=== PATIENT | male | born 1950 | race Caucasian/White ===

== ENCOUNTER → 2018-08-18 | Outpatient (CLI) | payer OTHER ==
[~2018-08-18] MED LIST: ASCO1TAB PO; ASPI-1441 PO; ASPI81TA94 PO; ATOR40TA24 PO; CAR3.125 PO; CAR6.25 PO; CEP500 PO; CHOL500045 PO; CLO75 PO; CYC10 PO; FOLI-51 PO; IBUP-1618 PO; INUL2.5T PO; LISI5TAB25 PO; LOR5/325 PO; MAG CITRATE; MELA3TAB31 PO; MILK200C PO; MULT1CAP41 PO; OMEG-36 PO; OMEG500C5 PO; OXYC-944 PO; PRAV80TA29 PO; REGADENOSON 0.4 MG/5 ML SYR ONE; TAMS0.4C25 PO
--- NOTE | 2018-08-18 16:27 | RT STRESS TEST REPORT ---
FACILITY: [facility] - [place] PATIENT NAME: JOAN TERRY : [id number] MR: [id number] V: [id number] EXAM DATE: ORDERING PHYSICIAN: ROSIE RAMIREZ TECHNOLOGIST: [employer] Time: 2018-08-18 14:59:54 Total Exercise Time: 00:01:00 Test Indications: Screening for CAD Medications: see nuclear med sheet Protocol: LEXISCAN Max HR: 107 BPM 70% of Pred: 152 BPM Max BP: 132/089 mmHG Max Work Load: 1.0 METS He had some shortness of breath after the infusion of Lexiscan, but it resolved in a few minutes. Th ere was no reported chest pain or ST depression. See the nuclear images for details. Confirmed by KADE OJEDA ([id number]) on 08/18/2018 4:26:51 PM Referred By: Overread By: KADE OJEDA
--- NOTE | 2018-08-18 17:48 | RADIOLOGY IMAGING REPORT ---
FACILITY: PATIENT NAME: Rodrigue Tijerina : 1950 MR: [id number] V: [id number] EXAM DATE: ORDERING PHYSICIAN: ROSIE RAMIREZ TECHNOLOGIST: Location: [facility] - [place] Patient: Rodrigue Tijerina : 1950 Visit/Account:[id number] Date of Sevice: 08/18/2018 EXAMINATION: Single isotope SPECT imaging with regadenoson infusion and gated SPECT imaging. DATE OF EXAMINATION: August 18, 2018. DATE OF INTERPRETATION: August 18, 2018. REQUESTING PHYSICIAN: ROSIE RAMIREZ. INDICATION: The patient is a 67-year-old male evaluated for CAD. PROCEDURE: After informed consent the patient received an intravenous injection of 12.4 mCi of Tc-99 m sestamibi followed at an appropriate time interval by rest imaging. The patient then subsequently received an intravenous infusion of 0.4 mg of regadenoson per protocol without complication. Resting heart rate was 67 bpm with a peak heart rate of 83 bpm. Blood pressure at rest was 132 / 89 and fol lowing infusion was 123 / 78. Baseline EKG demonstrates sinus rhythm. There were no diagnostic EKG changes of ischemia following infusion. Symptoms were nonspecific. The patient then received an int ravenous injection of 31.6 mCi of Tc-99m sestamibi followed by stress imaging. RAW DATA: Examination of the summed raw data revealed a good quality study. MYOCARDIAL PERFUSION: The tomographic images demonstrate moderately severe moderately extensive fixe d inferior and inferolateral defect consistent with prior infarct. In the anterior anterolateral sept al and inferoseptal cloud are normal rest and stress. No transient ischemic dilation post stress.. GATED IMAGES: The gated images demonstrate inferolateral wall hypokinesis with overall normal LV sys tolic function, LVEF 62%. IMPRESSION: 1. Nondiagnostic Lexiscan stress ECG 2. Abnormal myocardial perfusion scan. Moderate fixed inferolateral and inferior defect consistent with prior infarct. No ischemia verified. 3. Overall normal LV systolic function; LVEF 62% inferolateral wall hypokinesis. 4. Based on the results of this exam, the patient appears to be at intermediate risk for future cardi ovascular events. Report Dictated By: Tho Carmona MD at 08/18/2018 5:39 PM Report E-Signed By: Tho Carmona MD at 08/18/2018 5:44 PM WSN:[id number]
== END ==
LOC: NUC 00:46
PROVIDERS: ATTEND Internal Medicine Cardiovascular Disease
DX: R93.1 Abnormal findings on diagnostic imaging of heart and coronary circulation (principal)
CPT/HCPCS: 78452; 93017; A9500; J2785